=== PATIENT | female | born 1960 | race Caucasian/White ===

== ENCOUNTER → 2017-01-01 | Outpatient (CLI) | payer OTHER ==
--- NOTE | 2017-01-02 08:52 | CPEEG ---
[f rep st] ELECTROENCEPHALOGRAM ELECTROENCEPHALOGRAPHY DATE OF STUDY: 01/01/2017 INTERPRETATION: Normal EEG during wakefulness and sleep. There were no potentially epileptogenic a bnormalities present during the recording. REPORT: This EEG contains 10 Hz alpha to the posterior head regions. There was no abnormal activat ion at rest, during photic stimulation, or hyperventilation. The patient became drowsy and fell int o sustained sleep during the study. There was no abnormal activation during drowsiness, sleep, or d uring times of arousal. The patient had normal drowsy variants including bitemporal Wicket waves, m aximal left. These are of no clinical significance. /[id number]/MODL
== END ==
LOC: FCPNEURO 09:23
PROVIDERS: ATTEND Psychiatry & Neurology Neurology
DX: R41.89 Other symptoms and signs involving cognitive functions and awareness (principal); R55 Syncope and collapse

== ENCOUNTER → 2017-05-15 | Outpatient (CLI) | payer OTHER | LOC: FIMAGING 15:02 | PROVIDERS: ATTEND Internal Medicine | DX: Z12.31 Encounter for screening mammogram for malignant neoplasm of breast (principal) | CPT/HCPCS: G0202 ==

== ENCOUNTER → 2018-05-27 | Outpatient (CLI) | payer OTHER | LOC: FIMAGING 12:13 | PROVIDERS: ATTEND Internal Medicine | DX: Z12.31 Encounter for screening mammogram for malignant neoplasm of breast (principal) ==

== ENCOUNTER → 2018-07-06 | Outpatient (CLI) | payer OTHER | LOC: FIMAGING 08:32 | PROVIDERS: ATTEND Allergy & Immunology Allergy | DX: D73.9 Disease of spleen, unspecified (principal) ==